=== PATIENT | female | born 1950 | race Caucasian/White ===

== ENCOUNTER 2016-10-23 13:50 | Emergency (ER) | payer MEDICARE, OTHER ==
--- NOTE | 2016-10-23 14:47 | ED ---
Recheck HPI - General Chief Complaint: Recheck/Abnormal Lab/Rx Stated Complaint: abnormal EKG-sent by Time Seen by Provider: 10/23/16 14:10 Source: patient Mode of arrival: wheelchair Limitations: no limitations - History of Present Illness Initial Comments: This patient is a 66-year-old woman who comes here from the clinic, Dr. Almeida's office, after she was seen there by one of his associates, and felt to have EKG changes. The patient states that she had gone to see the physician today because she was having diffuse body aches, going on for 3 days area the patient states that she thought she was having the flu. She was told she was having some changes on her EKG, and they had her daughter come and get her to bring her here. The patient is denying any chest pain, but she states that when her clinician checked her today they noted she had some tenderness in the area of her left trapezius and shoulder and that was what prompted the EKG. MD Complaint: other -: hour(s) Returns Today for: other Symptoms Since Prior Visit: no new symptoms - Related Data Home Medications Medication Instructions Recorded Confirmed Omeprazole 20 mg PO BID 01/30/16 10/23/16 Acetaminophen Tab [Tylenol Tab] 1,000 mg PO Q6HR PRN 10/23/16 10/23/16 HYDROcodone/APAP 5-325MG [[place] 2 tab PO Q6HR PRN 10/23/16 10/23/16 5-325] Allergies Allergy/AdvReac Type Severity Reaction Status Date / Time No Known Allergies Allergy Verified 10/23/16 14:02 Review of Systems ROS Statement: Those systems with pertinent positive or pertinent negative responses have been documented in the HPI. ROS Other: All systems not noted in ROS Statement are negative. Constitutional: Reports: chills. Denies: fever ENT: Denies: throat pain Respiratory: Denies: cough, dyspnea, wheezes Cardiovascular: Denies: chest pain, palpitations, dyspnea on exertion, orthopnea , edema, syncope Gastrointestinal: Denies: abdominal pain, nausea, vomiting Genitourinary: Denies: dysuria, hematuria Musculoskeletal: Reports: as per HPI, myalgia Skin: Denies: rash Neurological: Denies: headache, weakness, numbness Past Medical History Past Medical History: GERD/Reflux Additional Past Medical History / Comment(s): arthritis History of Any Multi-Drug Resistant Organisms: None Reported Past Surgical History: Orthopedic Surgery Additional Past Surgical History / Comment(s): right hip surgery Past Psychological History: No Psychological Hx Reported Smoking Status: Current every day smoker Past Alcohol Use History: None Reported Past Drug Use History: None Reported General Exam Limitations: no limitations General appearance: alert, in no apparent distress Head exam: Present: atraumatic, normocephalic Eye exam: Present: normal appearance. Absent: scleral icterus, conjunctival injection ENT exam: Present: normal oropharynx Neck exam: Present: normal inspection. Absent: tenderness, meningismus Respiratory exam: Present: normal lung sounds bilaterally. Absent: respiratory distress, wheezes, rales, rhonchi, stridor Cardiovascular Exam: Present: regular rate (The heart rate is 96 at my exam), normal rhythm, normal heart sounds. Absent: systolic murmur, diastolic murmur, rubs, gallop GI/Abdominal exam: Present: soft. Absent: distended, tenderness, guarding, rebound, mass Extremities exam: Present: normal capillary refill, other (Left short arm cast) . Absent: pedal edema, calf tenderness Back exam: Present: normal inspection. Absent: CVA tenderness (R), CVA tenderness (L) Neurological exam: Present: alert Skin exam: Present: warm, dry, intact, normal color. Absent: rash Course Vital Signs 10/23/16 10/23/16 13:57 15:31 Temperature 99.3 F 100 F H Pulse Rate 107 H 97 Respiratory 18 16 Rate Blood Pressure 133/87 141/97 O2 Sat by Pulse 96 95 Oximetry Medical Decision Making - Lab Data Result diagrams: 10/23/16 14:20 10/23/16 14:20 Lab Results 10/23/16 10/23/16 10/23/16 Range/Units 14:20 14:20 14:20 WBC 8.9 (3.8-10.6) k/uL RBC 4.94 (3.80-5.40) m/uL Hgb 14.4 (11.4-16.0) gm/dL Hct 44.9 (34.0-46.0) % MCV 90.9 (80.0-100.0) fL MCH 29.1 (25.0-35.0) pg MCHC 32.0 (31.0-37.0) g/dL RDW 13.4 (11.5-15.5) % Plt Count 302 (150-450) k/uL Neutrophils % 69 % Lymphocytes % 18 % Monocytes % 9 % Eosinophils % 1 % Basophils % 1 % Neutrophils # 6.1 (1.3-7.7) k/uL Lymphocytes # 1.6 (1.0-4.8) k/uL Monocytes # 0.8 (0-1.0) k/uL Eosinophils # 0.1 (0-0.7) k/uL Basophils # 0.1 (0-0.2) k/uL Sodium 142 (137-145) mmol/L Potassium 4.4 (3.5-5.1) mmol/L Chloride 105 (98-107) mmol/L Carbon Dioxide 25 (22-30) mmol/L Anion Gap 12 mmol/L BUN 15 (7-17) mg/dL Creatinine 0.70 (0.52-1.04) mg/dL Est GFR (MDRD) Af Amer >60 (>60 ml/min/1.73 sqM) Est GFR (MDRD) Non-Af >60 (>60 ml/min/1.73 sqM) Glucose 103 H (74-99) mg/dL Calcium 9.9 (8.4-10.2) mg/dL Magnesium 2.2 (1.6-2.3) mg/dL Troponin I <0.012 (0.000-0.034) ng/mL Disposition Clinical Impression: Myalgia, Chest pain Disposition: Left Against Medical Advice Condition: Undetermined Instructions: Chest Pain (ED) Additional Instructions: As we discussed, return immediately if any of those symptoms develop, or if you have worsening in any way. Otherwise as we discussed, follow-up with the sorter/assay tech to arrange the stress test as soon as possible. Referrals: Too Almeida DO [Primary Care Provider] - 1-2 days Renato Diaz MD [STAFF PHYSICIAN] - 1-2 days
[2016-10-23 15:06] LABS: Basophils # (A) 0.1 k/uL (0-0.2); Basophils % (A) 1 %; CH 29.6; CHCM 32.7; Eosinophils # (A) 0.1 k/uL (0-0.7); Eosinophils % (A) 1 %; HCT 44.9 % (34.0-46.0); HDW 2.11; HGB 14.4 gm/dL (11.4-16.0); Luc # (Auto) 0.28; Luc % (Auto) 3; Lymphocytes # (A) 1.6 k/uL (1.0-4.8); Lymphocytes % (A) 18 %; MCH 29.1 pg (25.0-35.0); MCV 90.9 fL (80.0-100.0); Monocytes # (A) 0.8 k/uL (0-1.0); Monocytes % (A) 9 %; Neutrophils # (A) 6.1 k/uL (1.3-7.7); Neutrophils % (A) 69 %; RBC 4.94 m/uL (3.80-5.40); RDW 13.4 % (11.5-15.5); WBC 8.9 k/uL (3.8-10.6); WBC (Perox) 8.64
--- NOTE | 2016-10-23 15:16 | XR ---
EXAMINATION TYPE: XR chest 1V portable DATE OF EXAM: 10/23/2016 3:11 PM COMPARISON: 09/14/2014 HISTORY: Chest pain TECHNIQUE: Single frontal view of the chest is obtained. FINDINGS: Heart is enlarged and there is a small left effusion with basilar atelectasis. Underlying COPD noted. No pneumothorax. There is diffuse osteopenia. IMPRESSION: 1. Small left effusion and basilar atelectasis 2. Cardiomegaly 3. COPD
[2016-10-23 15:23] LABS: Anion Gap 12 mmol/L; Blood Urea Nitrogen 15 mg/dL (7-17); Calcium 9.9 mg/dL (8.4-10.2); Carbon Dioxide 25 mmol/L (22-30); Chloride 105 mmol/L (98-107); Glucose 103 mg/dL (74-99); Magnesium 2.2 mg/dL (1.6-2.3); Non-African American GFR(MDRD) >60 (>60 ml/min/1.73 sqM); Potassium 4.4 mmol/L (3.5-5.1); Sodium 142 mmol/L (137-145)
[2016-10-23 15:32] VITALS: BP 141/97; PULSE 97; RESP 16; TEMP 100
== END 2016-10-23 16:28 | disposition left against medical advice (07) ==
LOC: EC 13:50
DX: M79.1 Myalgia (principal); R07.9 Chest pain, unspecified; Z53.21 Procedure and treatment not carried out due to patient leaving prior to being seen by health care provider; Z79.899 Other long term (current) drug therapy; K21.9 Gastro-esophageal reflux disease without esophagitis; F17.200 Nicotine dependence, unspecified, uncomplicated
CPT/HCPCS: 36415; 71010; 80048; 83735; 84484; 85025; 93005; 99284

== ENCOUNTER → 2019-11-18 | Outpatient (CLI) | payer MEDICARE ==
--- NOTE | 2019-11-18 12:47 | XR ---
Right shoulder HISTORY: Right shoulder pain 3 views of the right shoulder Bone mineralization, joint spaces and alignment are maintained, some hypertrophic change present at t he acromioclavicular joint. No fracture or dislocation. Right lung is unremarkable as seen, there is likely some basilar atelectatic change to the low lung volume. IMPRESSION: Acromioclavicular joint arthropathy. Shoulder MRI may be of benefit.
== END | disposition home or self-care (01) ==
LOC: RADXRYALE 10:02
PROVIDERS: ATTEND Physician Assistant Medical
DX: M19.011 Primary osteoarthritis, right shoulder (principal)

== ENCOUNTER → 2021-01-25 | Outpatient (CLI) | payer MEDICARE ==
--- NOTE | 2021-01-25 11:20 | XR ---
EXAMINATION TYPE: XR knee complete LT DATE OF EXAM: 01/25/2021 CLINICAL HISTORY: Left knee pain. TECHNIQUE: Three views of the left knee are obtained. COMPARISON: None. FINDINGS: There is no acute fracture/dislocation evident in left knee. Mild to moderate tricompartme nt joint space loss and mild spurring . Osseous structures somewhat demineralized. Overlying soft tis lc is unremarkable. IMPRESSION: As above
== END | disposition home or self-care (01) ==
LOC: RADXRYALE 11:05
PROVIDERS: ATTEND Family Medicine
DX: M25.862 Other specified joint disorders, left knee (principal)

== ENCOUNTER → 2023-01-09 | Outpatient (CLI) | payer MEDICARE ==
--- NOTE | 2023-01-09 16:31 | XR ---
Exam: Left knee 3 view Date: 01/09/2023 Comparison: None Clinical History: Pain and swelling Technique: 3 views of the left knee were obtained per protocol. Findings: There is a trace suprapatellar effusion. There is patellofemoral joint space narrowing. There is no d islocation. There is medial compartment joint space narrowing. There is lateral compartment joint spa ce narrowing with marginal osteophytes. There is no acute fracture. Impression: Tricompartmental left knee osteoarthrosis without acute fracture or dislocation.
== END | disposition home or self-care (01) ==
LOC: RADXRYALE 15:28
PROVIDERS: ATTEND Family Medicine
DX: M17.12 Unilateral primary osteoarthritis, left knee (principal)

== ENCOUNTER → 2023-06-04 | Outpatient (CLI) | payer MEDICARE ==
--- NOTE | 2023-06-04 09:57 | XR ---
EXAMINATION TYPE: XR knee complete LT DATE OF EXAM: 06/04/2023 COMPARISON: 01/09/2023 HISTORY: Pain TECHNIQUE: Three views are submitted. FINDINGS: Severe narrowing of the lateral compartment of the knee joint with hypertrophic spurring. Mild narrow ing of the patellofemoral joint. Diffuse osteopenia.. Osseous structures are intact. No acute fract ure seen. IMPRESSION: 1. Severe arthropathy of the lateral compartment of the knee joint.
== END | disposition home or self-care (01) ==
LOC: RADXRYALE 08:57
PROVIDERS: ATTEND Family Medicine
DX: M25.562 Pain in left knee (principal); M17.12 Unilateral primary osteoarthritis, left knee

== ENCOUNTER 2023-08-15 13:14 | Emergency (ER) | payer MEDICARE ==
[2023-08-15] MEDS ORDERED: HYDROmorphone 1 MG/ML 1 ML SYRINGE IVP STA ×3 (13:27→19:07)
[2023-08-15] MEDS ORDERED: SODIUM CHLORIDE 0.9% 1,000 ML IV STA (13:28)
[2023-08-15 13:42] VITALS: RESP 16
[2023-08-15 14:20] LABS: Basophils % (A) 0 %; Eosinophils # (A) 0.3 k/uL (0-0.7); Eosinophils % (A) 2 %; HCT 45.8 % (34.0-46.0); Lymphocytes # (A) 1.5 k/uL (1.0-4.8); Lymphocytes % (A) 11 %; MCH 30.9 pg (25.0-35.0); MCHC 32.8 g/dL (31.0-37.0); MCV 94.4 fL (80.0-100.0); Mean Platelet Volume 10.3; Monocytes # (A) 1.2 k/uL (0-1.0); Monocytes % (A) 9 %; Neutrophils # (A) 10.4 k/uL (1.3-7.7); Neutrophils % (A) 76 %; Platelet Count 226 k/uL (150-450); RBC 4.85 m/uL (3.80-5.40); RDW 13.4 % (11.5-15.5); WBC 13.6 k/uL (3.8-10.6)
[2023-08-15 15:02] LABS: AST 488 U/L (14-36); African American GFR (CKD) >90 (>60 ml/min/1.73 sqM); Albumin 3.4 g/dL (3.5-5.0); Alkaline Phosphatase 300 U/L (38-126); Anion Gap 8 mmol/L; Blood Urea Nitrogen 19 mg/dL (7-17); Calcium 9.4 mg/dL (8.4-10.2); Carbon Dioxide 23 mmol/L (22-30); Chloride 108 mmol/L (98-107); Glucose 118 mg/dL (74-99); Non-African American GFR(CKD) >90 (>60 ml/min/1.73 sqM); Potassium 3.6 mmol/L (3.5-5.1); Sodium 139 mmol/L (137-145); Total Bilirubin 3.1 mg/dL (0.2-1.3); Total Protein 6.1 g/dL (6.3-8.2)
[2023-08-15 15:09] LABS: ALT 851 U/L (4-34)
--- NOTE | 2023-08-15 16:09 | CT ---
EXAMINATION TYPE: CT abdomen pelvis w con DATE OF EXAM: 08/15/2023 COMPARISON: None HISTORY: vomiting for a few days after severe back pain CT DLP: 1750.6 mGycm Automated exposure control for dose reduction was used. TECHNIQUE: Helical acquisition of images was performed from the lung bases through the pelvis. CONTRAST: Performed without Oral Contrast and with IV Contrast, patient injected with 100ML mL of Isovue 300. FINDINGS: There are marked emphysematous changes and chronic interstitial changes in the lung bases. The gallbladder is mildly distended but there are no gallstones, gallbladder wall thickening or peric holecystic fluid. The extrahepatic biliary tree is prominent and the common bile duct measures 12 mm. There is mild dilatation of the biliary tree within the left lobe of the liver. No pancreatic head m asses seen but ERCP might be useful and a nonemergent basis to rule out ampullary lesion. There is diffuse moderate peripancreatic fat infiltration consistent with acute pancreatitis. There i s no pseudocyst formation. There is a small amount of fluid in the left paracolic gutter extending fr om the pancreatic tail. There is no focal mass or organomegaly involving the liver, spleen or adrenal glands. The caliber the abdominal aorta is normal and there is no retroperitoneal adenopathy or hemorrhage. There is no solid renal mass or hydronephrosis. There is an extrarenal pelvis on the left. The bowel loops are normal in caliber and there is no dilatation or obstruction. There is no free int raperitoneal air or fluid. There is a 2.9 cm right adnexal mass. Patient this age group transvaginal ultrasound could be obtaine d on a nonemergent basis. There is no free fluid in the pelvis and no pelvic adenopathy. There is a right hip prosthesis otherwise the osseous structures are intact. IMPRESSION: 1. Findings consistent with acute pancreatitis as described above. 2. Distended gallbladder and dilated biliary tree as described above. Pancreatic head mass or ampulla ry mass cannot be identified but ERCP on a nonemergent basis should be considered for workup. 3. Marked chronic changes in the lung bases. 4. 2.9 cm right adnexal mass. Further workup is warranted patient of this age group. Nonemergent pelv ic ultrasound would be useful for further evaluation.
[2023-08-15 16:28] LABS: Lipase >20000 U/L (23-300)
--- NOTE | 2023-08-15 16:57 | ED ---
General Adult HPI - General Chief complaint: Back Pain/Injury Stated complaint: Back pain, nausea, vomiting Time Seen by Provider: 08/15/23 13:15 Source: EMS Mode of arrival: EMS Limitations: no limitations - History of Present Illness Initial comments: 72-year-old female with past medical history of rheumatoid arthritis who presents emergency Department with back pain that radiates around to her anterior abdomen. States it started 3 days ago and has been constant. Pain is colicky in nature and she states that when it gets bad she'll have an episode of vomiting. Reports that she has had several episodes today which is nonbilious and nonbloody. She has not taken anything for the pain at home. No fevers. Denies chest pain or shortness of breath. She denies dysuria, hematuria or difficult voiding. No diarrhea, constipation, black or bloody stools. No other alleviating, precipitating or modifying factors - Related Data Home Medications Medication Instructions Recorded Confirmed Omeprazole 20 mg PO BID 01/30/16 10/23/16 Acetaminophen Tab [Tylenol Tab] 1,000 mg PO Q6HR PRN 10/23/16 10/23/16 HYDROcodone/APAP 5-325MG [[place] 2 tab PO Q6HR PRN 10/23/16 10/23/16 5-325] Allergies Allergy/AdvReac Type Severity Reaction Status Date / Time No Known Allergies Allergy Verified 08/15/23 13:37 Review of Systems ROS Statement: Those systems with pertinent positive or pertinent negative responses have been documented in the HPI. ROS Other: All systems not noted in ROS Statement are negative. Past Medical History Past Medical History: GERD/Reflux Additional Past Medical History / Comment(s): arthritis History of Any Multi-Drug Resistant Organisms: None Reported Past Surgical History: Orthopedic Surgery Additional Past Surgical History / Comment(s): right hip surgery Past Psychological History: No Psychological Hx Reported Smoking Status: Never smoker Past Alcohol Use History: None Reported Past Drug Use History: None Reported General Exam Limitations: no limitations General appearance: alert, in no apparent distress Head exam: Present: atraumatic, normocephalic, normal inspection Eye exam: Present: normal appearance, PERRL, EOMI. Absent: scleral icterus, conjunctival injection, periorbital swelling ENT exam: Present: normal exam, mucous membranes moist Neck exam: Present: normal inspection. Absent: tenderness, meningismus, lymphadenopathy Respiratory exam: Present: normal lung sounds bilaterally. Absent: respiratory distress, wheezes, rales, rhonchi, stridor Cardiovascular Exam: Present: regular rate, normal rhythm, normal heart sounds. Absent: systolic murmur, diastolic murmur, rubs, gallop, clicks GI/Abdominal exam: Present: tenderness (Epigastric and generalized tenderness), normal bowel sounds. Absent: distended, guarding, rebound, rigid Extremities exam: Present: normal inspection, full ROM, normal capillary refill. Absent: tenderness, pedal edema, joint swelling, calf tenderness Back exam: Present: normal inspection Neurological exam: Present: alert, oriented X3, CN II-XII intact Psychiatric exam: Present: normal affect, normal mood Skin exam: Present: warm, dry, intact, normal color. Absent: rash Course Vital Signs 08/15/23 13:26 Temperature 98.7 F Pulse Rate 63 Respiratory 16 Rate Blood Pressure 150/108 O2 Sat by Pulse 95 Oximetry Medical Decision Making - Medical Decision Making Was pt. sent in by a medical professional or institution (, PA, VOUCHER CLERK, urgent care, hospital, or long-term...) When possible be specific @ -No Did you speak to anyone other than the patient for history (EMS, parent, family, police, friend...)? What history was obtained from this source @ -EMS provide history Did you review nursing and triage notes (agree or disagree)? Why? @ -I reviewed and agree with nursing and triage notes Were old charts reviewed (outside hosp., previous admission, EMS record, old EKG, old radiological studies, urgent care reports/EKG's, long-term records)? Report findings @ -No old charts were reviewed Differential Diagnosis (chest pain, altered mental status, abdominal pain women, abdominal pain men, vaginal bleeding, weakness, fever, dyspnea, syncope, headache, dizziness, GI bleed, back pain, seizure, CVA, palpatations, mental health, musculoskeletal)? @ -Differential Abdominal Pain Women: Appendicitis, Cholecystitis, diverticulosis, ischemic bowel, pancreatitis, hepatitis, UTI, gastroenteritis, AAA, incarcerated hernia, bowel obstruction, constipation, inflammatory bowel, hepatitis, peptic ulcer disease, splenic infarction, perforated viscus, vulvitis, ovarian torsion, PID, kidney stone, placenta abruption, this is not meant to be an all-inclusive list EKG interpreted by me (3pts min.). @ -Not done X-rays interpreted by me (1pt min.). @ -None done CT interpreted by me (1pt min.). @ -Yes and demonstrates biliary duct dilation U/S interpreted by me (1pt. min.). @ -None done What testing was considered but not performed or refused? (CT, X-rays, U/S, labs)? Why? @ -None What meds were considered but not given or refused? Why? @ -None Did you discuss the management of the patient with other professionals (professionals i.e. , PA, VOUCHER CLERK, lab, RT, psych nurse, social science professor, director of consulting services, teacher, conservation officer, block and case maker)? Give summary @ -Spoke with Dr. Caceres at [facility] Was smoking cessation discussed for >3mins.? @ -No Was critical care preformed (if so, how long)? @ -No Were there social determinants of health that impacted care today? How? (Homelessness, low income, unemployed, alcoholism, drug addiction, transportation, low edu. Level, literacy, decrease access to med. care, half-way, rehab)? @ -No Was there de-escalation of care discussed even if they declined (Discuss DNR or withdrawal of care, Hospice)? DNR status @ -No What co-morbidities impacted this encounter? (DM, HTN, Smoking, COPD, CAD, Cancer, CVA, ARF, Chemo, Hep., AIDS, mental health diagnosis, sleep apnea, morbid obesity)? @ -None Was patient admitted / discharged? Hospital course, mention meds given and route, prescriptions, significant lab abnormalities, going to OR and other pertinent info. @ -Upon arrival patient was placed into room 16. Thorough history and physical exam was performed. Laboratory studies were conducted. Patient received 4 mg of Zofran and 50 mcg of fentanyl by EMS. She did receive a liter bolus of normal saline and 1 mg of Dilaudid by myself. Patient does have significantly elevated lipase of greater than 20,000. AST, ALT and bili is also elevated. CT performed which demonstrates biliary duct dilation. No visible gallstones or signs of cholecystitis. Patient does receive a second milligram of Dilaudid. Discuss results with the patient. She requires ERCP. No GI capabilities at her facility. Recommend transfer. Patient agreeable. Spoke with Dr. Caceres at [facility] who does accept transfer the patient. [employer] forms signed. patient transferred in stable condition Undiagnosed new problem with uncertain prognosis? @ -yes Drug Therapy requiring intensive monitoring for toxicity (Heparin, Nitro, Insulin, Cardizem)? @ -No Were any procedures done? @ -No Diagnosis/symptom? @ -Acute abdominal pain, acute pancreatitis, transaminitis, elevated bilirubin, biliary duct dilation Acute, or Chronic, or Acute on Chronic? @ -Acute Uncomplicated (without systemic symptoms) or Complicated (systemic symptoms)? @ -complicated Side effects of treatment? @ -No Exacerbation, Progression, or Severe Exacerbation? @ -No Poses a threat to life or bodily function? How? (Chest pain, USA, LA, pneumonia, PE, COPD, DKA, ARF, appy, cholecystitis, CVA, Diverticulitis, Homicidal, Suicidal, threat to staff... and all critical care pts) @ -No - Lab Data Result diagrams: 08/15/23 14:04 08/15/23 14:04 Lab Results 08/15/23 08/15/23 08/15/23 Range/Units 14:04 14:04 14:04 WBC 13.6 H (3.8-10.6) k/uL RBC 4.85 (3.80-5.40) m/uL Hgb 15.0 (11.4-16.0) gm/dL Hct 45.8 (34.0-46.0) % MCV 94.4 (80.0-100.0) fL MCH 30.9 (25.0-35.0) pg MCHC 32.8 (31.0-37.0) g/dL RDW 13.4 (11.5-15.5) % Plt Count 226 (150-450) k/uL MPV 10.3 Neutrophils % 76 % Lymphocytes % 11 % Monocytes % 9 % Eosinophils % 2 % Basophils % 0 % Neutrophils # 10.4 H (1.3-7.7) k/uL Lymphocytes # 1.5 (1.0-4.8) k/uL Monocytes # 1.2 H (0-1.0) k/uL Eosinophils # 0.3 (0-0.7) k/uL Basophils # 0.0 (0-0.2) k/uL Sodium 139 (137-145) mmol/L Potassium 3.6 (3.5-5.1) mmol/L Chloride 108 H (98-107) mmol/L Carbon Dioxide 23 (22-30) mmol/L Anion Gap 8 mmol/L BUN 19 H (7-17) mg/dL Creatinine 0.60 (0.52-1.04) mg/dL Est GFR (CKD-EPI)AfAm >90 (>60 ml/min/1.73 sqM) Est GFR (CKD-EPI)NonAf >90 (>60 ml/min/1.73 sqM) Glucose 118 H (74-99) mg/dL Plasma Lactic Acid Chris 1.1 (0.7-2.0) mmol/L Calcium 9.4 (8.4-10.2) mg/dL Total Bilirubin 3.1 H (0.2-1.3) mg/dL AST 488 H (14-36) U/L ALT 851 H (4-34) U/L Alkaline Phosphatase 300 H (38-126) U/L Total Protein 6.1 L (6.3-8.2) g/dL Albumin 3.4 L (3.5-5.0) g/dL Lipase >70620 H (23-300) U/L Disposition Clinical Impression: Abdominal pain, Acute pancreatitis, Common bile duct dilation, Transaminitis Disposition: OTHER INSTITUTION NOT DEFINED Condition: Serious Is patient prescribed a controlled substance at d/c from ED?: No Referrals: Too Almeida DO [Primary Care Provider] - 1-2 days Time of Disposition: 16:58 - Out of Hospital Transfer - Req. Specs Out of Hospital Transfer - Requested Specifics: Other Emergency Center ([facility]
[2023-08-15] MEDS ORDERED: SODIUM CHLORIDE 0.9% 1,000 ML IV SCH (17:00)
[2023-08-15 17:54] VITALS: BP 175/117; PULSE 72; TEMP 97.7
== END 2023-08-15 19:15 | disposition other institution (70) ==
LOC: EC 13:14
DX: K85.90 Acute pancreatitis without necrosis or infection, unspecified (principal); K83.8 Other specified diseases of biliary tract; R74.01 Elevation of levels of liver transaminase levels; R74.8 Abnormal levels of other serum enzymes; K21.9 Gastro-esophageal reflux disease without esophagitis; Z79.899 Other long term (current) drug therapy
CPT/HCPCS: 36415; 80053; 83605; 83690; 85025; 74177; 99285; 96374; 96376 ×2; 96361 ×3; J1170; Q9967